=== PATIENT | male | born 1950 | race Caucasian/White ===

== ENCOUNTER → 2017-08-14 10:35 | Outpatient (CLI) | payer MEDICARE, OTHER, SELFPAY ==
[2017-08-14 12:36] LABS: Vitamin B12 473 pg/mL (211-911)
[2017-08-14 13:18] LABS: Cholesterol 183 mg/dL (200); Creatinine, Serum 0.96 mg/dL (0.70-1.30); EST Glomerular Filtration Rate 83 mL/min (>60); Est Glom Filt Rate - Afr Amer 101 mL/min (>60); Ferritin 99 ng/mL (26-388); High Density Lipoprotein 54 mg/dL; Thyroid Stim Hormone (TSH) 1.08 uIU/mL (0.358-3.74); Triglycerides 79 mg/dL; Very Low Density Lipoprotein 16 mg/dL (5-40)
== END ==
PROVIDERS: Family Provider Family Medicine; PCP Family Medicine; Visit Provider Family Medicine
DX: Z00.00 Encounter for general adult medical examination without abnormal findings (principal); R20.2 Paresthesia of skin
CPT/HCPCS: 36415; 80061; 82565; 82607; 82728; 82746; 84443

== ENCOUNTER 2017-10-13 10:49 | Emergency (ER) | payer MEDICARE, OTHER, SELFPAY ==
[2017-10-13 10:50] VITALS: BP 123/76; PULSE 67; RESP 16; TEMP 36.7; O2SAT 98; BMI 25.0
[2017-10-13 11:54] LABS: Absolute Lymphocyte Count 1.74 X10^3/ul (0.83-4.51); Absolute Neutrophil Count 3.9 X10^3/uL (2.0-7.7); Basophil# 0.02 X10^3/uL; Basophil% 0.3 % (0-1); Eosinophil# 0.11 X10^3/uL; Eosinophils% 1.8 % (0-5); Hematocrit 45.1 % (40-54); Hemoglobin 14.5 g/dl (13.0-16.5); Lymphocyte # 1.74 X10^3/ul (4.0); Lymphocyte % 28.4 % (19-41); Mean Corp Hgb Conc 32.2 g/gl (32-36); Mean Corpuscular Hgb 29.1 pg (27.0-32.0); Mean Corpuscular Volume 90.4 fL (80-94); Mean Platelet Vol. 9.2 fl (6.2-12.0); Monocyte# 0.37 X10^3/uL; Neutrophil # 3.87 X10^3/uL (2.7-7.7); Neutrophil % 63.3 % (47-70); Platelet Count 252 K/mm3 (150-450); RBC Distribution Width CV 13.3 % (11.6-14.6); RBC Distribution Width SD 43.3 fl (35.1-43.9); Red Blood Count 4.99 M/mm3 (4.6-6.2); White Blood Count 6.1 K/mm3 (4.4-11.0)
[2017-10-13 11:55] LABS: POSITIVE COUNT NO; POSITIVE DIFFERENTIAL NO; POSITIVE MORPHOLOGY NO
[2017-10-13 12:04] LABS: Anion Gap 8 (5-15); BUN 13 mg/dL (7-18); BUN/Creat Ratio 13.3 RATIO (10-20); Calcium,Total 8.8 mg/dL (8.5-10.1); Chloride 106 mmol/L (98-107); Creatinine, Serum 0.98 mg/dL (0.70-1.30); EST Glomerular Filtration Rate 81 mL/min (>60); Est Glom Filt Rate - Afr Amer 98 mL/min (>60); Estimated Creatinine Clearance 74.15 ml/min; Glucose 96 mg/dL (74-106); Potassium 4.3 mmol/L (3.5-5.1); Sodium Level 143 mmol/L (136-145)
--- NOTE | 2017-10-13 12:24 | ED.VISSUMM ---
- ER Visit Summary Date of Service: 10/13/17 Chief Complaint: Twitching and paresthesias History of Present Illness: The patient is a [address] Melquiades Burgess. He reports that he has had leg spasms and twitching for approximately 1 year that come and go. States that these are present at night only. States that approximately 1 week ago these began in his trunk and then last night they were in his face. Reports this morning is got tingling in his hands bilaterally left greater than right. He denies any weakness. Review of systems: General: No fever, chills, cold sweats. Cardiovascular: No chest pain, palpitations. Respiratory: No cough, shortness of breath, dyspnea on exertion. Gastrointestinal: No abdominal pain, nausea, vomiting, diarrhea, melena, or hematochezia. Genitourinary: No dysuria, frequency, hematuria. Skin: No rash. Neuro: No headache, weakness. Physical Examination: Vitals: Stable. Afebrile. General: Well-nourished and well-developed. Head: Normocephalic atraumatic. Neck: Supple, no lymphadenopathy. No JVD. Nontender. Cardiovascular: Regular rate and rhythm. No murmurs. Respiratory: No respiratory distress. Clear to auscultation bilaterally. Abdominal: Soft, nontender, nondistended, normal bowel sounds. No guarding, rebound, or peritoneal signs. Back: Nontender. Extremities: Nontender, no edema. Skin: Normal color, no rash. Neurologic: Alert and oriented ?3. Cranial nerves II through XII are intact. Normal strength and sensation. NIH scale is 0. Psych: Normal affect. Test Results: CBC is normal. Chem-[address] head is normal. Emergency Department Course and Treatment: Patient was given a liter bolus of normal saline. He is resting comfortably. Treatment Plan: Patient was discussed with Dr. Melquiades Burgess. He will be discharged with instructions to follow-up within 3 days for results of the heavy metal testing and further evaluation. Return to the emergency department for any worsening symptoms. Disposition: To home in improved and stable condition. Impression: 1. Paresthesias, uncertain cause. 2. Intermittent twitching. This note was generated with [employer] software. It may contain incorrect words, spelling, and punctuation that were not noted in review of the chart prior to signing ED Disposition - Plan for ED Patient: Chief Complaint: Neuro S/Sx Instructions: ED Paraesthesias Prescriptions: Zolpidem Tartrate [Ambien] 10 mg PO QHS PRN #5 tab PRN Reason: Insomnia Referrals: Melquiades Burgess MD [Primary Care Provider] - 3-5 Days
[2017-10-13 13:08] VITALS: BP 130/81; PULSE 56; PULSE 57; RESP 16; O2SAT 98
[2017-10-15 10:45] LABS: Arsenic 7245 6 ug/L (2-23); Lead, Blood 1 ug/dL (0-4); Mercury, Blood 85324 1.2 ug/L (0.0-14.9)
== END 2017-10-13 13:33 | disposition home or self-care (01) ==
PROVIDERS: Emergency Provider Emergency Medicine; Family Provider Family Medicine; PCP Family Medicine
DX: R25.3 Fasciculation (principal); R20.2 Paresthesia of skin
CPT/HCPCS: 36415; 70450; 80048; 82175; 83655; 83825; 85025; 90471; 99285; J7030; J7040; A4216

== ENCOUNTER → 2017-10-16 13:25 | Outpatient (CLI) | payer MEDICARE, OTHER, SELFPAY ==
[2017-10-16 14:40] LABS: PTHIN 68.2 pg/mL (18.4-80.1)
[2017-10-20 10:27] LABS: ANTINUCLEAR ANTIBODIES DIRECT Negative (Negative)
[2017-10-20 12:08] LABS: Lyme IgG P18 Ab Absent (.); Lyme IgG P23 Ab Absent (.); Lyme IgG P28 Ab Absent (.); Lyme IgG P30 Ab Absent (.); Lyme IgG P39 Ab Absent (.); Lyme IgG P41 Ab Absent (.); Lyme IgG P45 Ab Absent (.); Lyme IgG P58 Ab Absent (.); Lyme IgG P66 Ab Absent (.); Lyme IgG P93 Ab Absent (.); Lyme IgM P23 Ab Absent (.); Lyme IgM P39 Ab Absent (.); Lyme IgM P41 Ab Absent (.)
[2017-10-20 17:14] LABS: Lyme IgG WB Interpretation Negative (.); Lyme IgM WB Interpretation Negative (.)
[2017-10-23 03:49] LABS: Rapid Plasmin Reagin (RPR) NONREACTIVE (NONREACTIVE)
== END ==
PROVIDERS: Family Provider Family Medicine; PCP Family Medicine; Visit Provider Family Medicine
DX: R20.2 Paresthesia of skin (principal)
CPT/HCPCS: 36415; 83970; 86038; 86592; 86617

== ENCOUNTER → 2017-11-12 16:00 | Outpatient (CLI) | payer MEDICARE, OTHER, SELFPAY ==
[2017-11-12 17:26] LABS: Erythrocyte Sedimentation Rate 2 mm/hr (0-20)
[2017-11-12 17:38] LABS: Ferritin 99 ng/mL (26-388); Iron 88 ug/dL (65-175); Iron Binding Capacity,Total 324 ug/dL (250-450); PERCENT IRON SATURATION 27.2 % (15.0-55.0)
[2017-11-12 17:48] LABS: Hemoglobin A1c 5.2 % (4.2-6.3)
[2017-11-12 18:27] LABS: HIV - WCH Non-Reactive (Nonreactive); Vitamin B12 364 pg/mL (211-911)
[2017-11-16 18:43] LABS: RNP Ab <0.2 AI (0.0-0.9); Smith Ab <0.2 AI (0.0-0.9)
[2017-11-16 20:07] LABS: Immunoglobulin A 196 mg/dL (61-437); Immunoglobulin G 884 mg/dL (700-1600)
[2017-11-17 09:28] LABS: ANTINUCLEAR ANTIBODIES DIRECT Negative (Negative); Immunoglobulin M 75 mg/dL (20-172)
== END ==
PROVIDERS: Family Provider Family Medicine; PCP Family Medicine; Visit Provider Psychiatry & Neurology Neurology
DX: D64.9 Anemia, unspecified (principal); G25.81 Restless legs syndrome; G62.9 Polyneuropathy, unspecified; R53.83 Other fatigue
CPT/HCPCS: 36415; 82607; 82728; 82784; 83036; 83540; 83550; 85652; 86038; 86235; 86334; 86703

== ENCOUNTER → 2019-10-06 14:14 | Outpatient (CLI) | payer MEDICARE, OTHER, SELFPAY ==
[2019-10-06 17:59] LABS: Absolute Lymphocyte Count 2.21 X10^3/uL (0.83-4.51); Absolute Neutrophil Count 2.3 X10^3/uL (2.0-7.7); Basophil# 0.04 X10^3/uL; Basophil% 0.7 % (0-1); Eosinophils% 5.6 % (0-5); Hematocrit 42.5 % (40-54); Hemoglobin 13.8 g/dL (13.0-16.5); Lymphocyte # 2.21 X10^3/ul (4.0); Lymphocyte % 41.3 % (19-41); Mean Corp Hgb Conc 32.5 g/dL (32-36); Mean Corpuscular Hgb 29.6 pg (27.0-32.0); Mean Platelet Vol. 10.1 fl (6.2-12.0); Monocyte# 0.47 X10^3/uL; Monocyte% 8.8 % (0-10); NRBC Flagged by Analyzer 0 % (0-5); Platelet Count 270 K/mm3 (150-450); RBC Distribution Width CV 13.1 % (11.6-14.6); RBC Distribution Width SD 43.7 fl (35.1-43.9); Red Blood Count 4.67 M/mm3 (4.6-6.2); White Blood Count 5.4 K/mm3 (4.4-11.0)
[2019-10-06 18:19] LABS: Erythrocyte Sedimentation Rate < 1 mm/hr (0-20)
[2019-10-06 18:24] LABS: ALB/GLOB Ratio 1.2 RATIO (0.9-2.4); AST(SGOT) 19 U/L (15-37); Alanine Aminotransfer ALT/SGPT 28 U/L (16-61); Albumin, Serum 3.7 g/dL (3.2-5.0); Alkaline Phosphatase 73 U/L (45-117); Anion Gap 7 (5-15); BUN 14 mg/dL (7-18); BUN/Creat Ratio 13.9 RATIO (10-20); Calcium,Total 8.4 mg/dL (8.5-10.1); Chloride 104 mmol/L (98-107); Creatinine, Serum 1.01 mg/dL (0.70-1.30); EST Glomerular Filtration Rate 78 mL/min (>60); Est Glom Filt Rate - Afr Amer 94 mL/min (>60); Globulin 3.2 g/dL (2.2-4.2); Glucose 74 mg/dL (74-106); Potassium 3.6 mmol/L (3.5-5.1); Protein, Total 6.9 g/dL (6.4-8.2); Sodium Level 141 mmol/L (136-145)
== END ==
PROVIDERS: PCP Family Medicine; Referring Provider Family Medicine; Visit Provider Family Medicine
DX: R10.12 Left upper quadrant pain (principal)
CPT/HCPCS: 36415; 80053; 85025; 85652

== ENCOUNTER → 2019-10-17 08:33 | Outpatient (CLI) | payer MEDICARE, OTHER, SELFPAY ==
--- NOTE | 2019-10-17 08:36 | CT_ITS ---
STUDY: CT ABDOMEN WITH CONTRAST REASON FOR EXAM: Male, 68 years old. LUQ PAIN RADIATION DOSAGE (If Supplied By Facility): CTDIvol = ( 15.41 ) mGy, DLP = ( 442.72 ) mGycm TECHNIQUE: Transaxial images were obtained post I.V. administration of Oral and IV Readi-CAT and 100mL Isovue-300, and with oral contrast. Sagittal and coronal images were reconstructed. Individualized dose optimization techniques were used for this CT. COMPARISON: Comparison is made with prior study dated 07/07/2012. FINDINGS: Stable mild increased markings at the lung bases suggestive of prior scarring. The visualized portions of the heart are within normal limits. There is decreased attenuation of the liver consistent with steatosis. Normal gallbladder and extrahepatic biliary system. Stable 1.2 cm cyst in the anterior aspect of the spleen. Normal pancreas. Normal bilateral adrenal glands. Normal right kidney. Normal left kidney. Normal visualized stomach. Normal small intestine. Normal colon. The appendix is visualized and appears normal. There is scattered atherosclerotic calcification of the abdominal aorta, without a demonstrated aneurysm. Normal inferior vena cava. Normal retroperitoneum. There is a small umbilical hernia containing fat. Normal osseous structures. CT/Abdomen WITH IV Contrast IMPRESSION: No acute abnormality is seen. Electronically Signed: Rodrigue Thornton, at 15:05 EDT , Service support ,
== END ==
PROVIDERS: PCP Family Medicine; Referring Provider Family Medicine; Visit Provider Family Medicine
DX: R10.12 Left upper quadrant pain (principal)
CPT/HCPCS: 74160; Q9967

== ENCOUNTER → 2019-12-23 09:11 | Outpatient (CLI) | payer MEDICARE, OTHER, SELFPAY ==
[2019-12-23 09:42] LABS: Absolute Lymphocyte Count 2.12 X10^3/uL (0.83-4.51); Absolute Neutrophil Count 2.4 X10^3/uL (2.0-7.7); Basophil# 0.04 X10^3/uL; Basophil% 0.8 % (0-1); Eosinophil# 0.29 X10^3/uL; Eosinophils% 5.5 % (0-5); Hematocrit 45.1 % (40-54); Hemoglobin 14.6 g/dL (13.0-16.5); Lymphocyte # 2.12 X10^3/ul (4.0); Lymphocyte % 39.9 % (19-41); Mean Corp Hgb Conc 32.4 g/dL (32-36); Mean Corpuscular Hgb 29.3 pg (27.0-32.0); Mean Corpuscular Volume 90.6 fL (80-94); Mean Platelet Vol. 9.3 fl (6.2-12.0); Monocyte# 0.47 X10^3/uL; Monocyte% 8.9 % (0-10); NRBC Flagged by Analyzer 0 % (0-5); Neutrophil # 2.36 X10^3/uL (2.7-7.7); Neutrophil % 44.3 % (47-70); Platelet Count 257 K/mm3 (150-450); RBC Distribution Width CV 13.1 % (11.6-14.6); RBC Distribution Width SD 43.1 fl (35.1-43.9); Red Blood Count 4.98 M/mm3 (4.6-6.2); White Blood Count 5.3 K/mm3 (4.4-11.0)
[2019-12-23 10:12] LABS: ALB/GLOB Ratio 1.1 RATIO (0.9-2.4); AST(SGOT) 16 U/L (15-37); Alanine Aminotransfer ALT/SGPT 25 U/L (16-61); Albumin, Serum 3.8 g/dL (3.2-5.0); Alkaline Phosphatase 69 U/L (45-117); Anion Gap 6 (5-15); BUN 18 mg/dL (7-18); BUN/Creat Ratio 16.5 RATIO (10-20); Calcium,Total 8.6 mg/dL (8.5-10.1); Chloride 104 mmol/L (98-107); Cholesterol 212 mg/dL (200); Creatinine, Serum 1.09 mg/dL (0.70-1.30); EST Glomerular Filtration Rate 71 mL/min (>60); Est Glom Filt Rate - Afr Amer 86 mL/min (>60); Globulin 3.4 g/dL (2.2-4.2); Glucose 89 mg/dL (74-106); High Density Lipoprotein 52 mg/dL; PSA,Total - Annual Screen 3.68 ng/mL (0.00-4.00); Potassium 4.2 mmol/L (3.5-5.1); Protein, Total 7.2 g/dL (6.4-8.2); Sodium Level 139 mmol/L (136-145); Triglycerides 111 mg/dL; Very Low Density Lipoprotein 22 mg/dL (5-40)
== END ==
PROVIDERS: PCP Family Medicine; Referring Provider Family Medicine; Visit Provider Family Medicine
DX: G25.81 Restless legs syndrome (principal); Z13.220 Encounter for screening for lipoid disorders; Z12.5 Encounter for screening for malignant neoplasm of prostate; Z79.899 Other long term (current) drug therapy
CPT/HCPCS: 36415; 80053; 80061; 84153; 85025; G0103

== ENCOUNTER → 2020-05-25 12:30 | Outpatient (CLI) | payer MEDICARE, OTHER, SELFPAY ==
[2020-05-28 13:21] LABS: PSA, Free % 11.4 % (.); PSA, Total Ultrasensitive 3.5 ng/mL (0.0-4.0)
== END ==
PROVIDERS: PCP Family Medicine; Referring Provider Family Medicine; Visit Provider Family Medicine
DX: R97.20 Elevated prostate specific antigen [PSA] (principal)
CPT/HCPCS: 36415; 84153; 84154

== ENCOUNTER 2021-05-03 13:08 | Outpatient (CLI) | payer MEDICARE, OTHER, SELFPAY ==
[2021-05-03 13:16] LABS: Bacteria 0 SEEN /hpf (None Seen); Mucous, Urine 0 SEEN /hpf (<or=2+); Red Blood Cells-Urine 0 SEEN /hpf (0-5); Squamous Epithelial Cells - UA 0 SEEN /hpf (0-5)
[2021-05-03 15:36] LABS: Color, Urine Yellow (Yellow); Glucose, Dipstick Normal (Normal); Ketone-Dipstick Negative (Negative); Leukocyte Esterase-Dipstick Negative /ul (Negative); Nitrite-Dipstick Negative (Negative); Occult Blood-Urine Negative /ul (Negative); Protein-Dipstick Negative (Negative); Urine Bilirubin Dipstick Negative (Negative); Urine Clarity Clear (Clear); Urine Urobilinogen Normal (Normal)
[2021-05-03 15:42] LABS: Hematocrit 42.4 % (40-54); Hemoglobin 13.9 g/dL (13.0-16.5); Mean Corp Hgb Conc 32.8 g/dL (32-36); Mean Corpuscular Hgb 29.7 pg (27.0-32.0); Mean Corpuscular Volume 90.6 fL (80-94); Platelet Count 407 K/mm3 (150-450); RBC Distribution Width CV 12.8 % (11.6-14.6); RBC Distribution Width SD 41.9 fl (35.1-43.9); Red Blood Count 4.68 M/mm3 (4.6-6.2)
[2021-05-03 15:44] LABS: ALB/GLOB Ratio 0.9 RATIO (0.9-2.4); AST(SGOT) 14 U/L (15-37); Alanine Aminotransfer ALT/SGPT 20 U/L (16-61); Albumin, Serum 3.5 g/dL (3.2-5.0); Alkaline Phosphatase 97 U/L (45-117); Anion Gap 4 (5-15); BUN 17 mg/dL (7-18); CRP 7.42 mg/L (0.0-3.0); Calcium,Total 9.3 mg/dL (8.5-10.1); Chloride 105 mmol/L (98-107); Creatinine, Serum 1.13 mg/dL (0.70-1.30); EST Glomerular Filtration Rate 68 mL/min (>60); Est Glom Filt Rate - Afr Amer 82 mL/min (>60); Globulin 3.7 g/dL (2.2-4.2); Glucose 118 mg/dL (74-106); Potassium 3.8 mmol/L (3.5-5.1); Protein, Total 7.2 g/dL (6.4-8.2); Sodium Level 138 mmol/L (136-145)
[2021-05-03 16:07] LABS: White Blood Cells 0-5 SEEN /hpf (0-5)
== END 2021-05-03 23:59 | disposition home or self-care (01) ==
LOC: MTLAB 13:12
PROVIDERS: PCP Family Medicine; Referring Provider Family Medicine; Visit Provider Family Medicine
DX: R10.9 Unspecified abdominal pain (principal)
CPT/HCPCS: 36415; 80053; 81001; 85027; 86140

== ENCOUNTER 2021-05-07 13:15 | Outpatient (CLI) | payer MEDICARE, OTHER, SELFPAY ==
--- NOTE | 2021-05-07 13:19 | CT_ITS ---
STUDY: CT Abdomen And Pelvis W/O Contrast Injection 05/07/2021 5:38 PM REASON FOR EXAM: Male, 70 years old. Abdominal pain R flank pain, concern for stone/hydronephrosis; cc copy of all la Individualized dose optimization techniques were used for this CT. COMPARISON: Oct 17 2019 8:58am TECHNIQUE: CT Abdomen And Pelvis W/O Contrast Injection FINDINGS: There are atherosclerotic calcifications of visualized coronary arteries. 15 x 26 mm right posterior lower lobe subpleural density. This may be a pneumonia. Underlying mass is difficult to exclude. This finding is new since the prior study. Normal liver. Normal gallbladder and extrahepatic biliary system. Normal spleen. Normal pancreas. Normal bilateral adrenal glands. No acute findings of the right kidney. No acute findings of the left kidney. Normal visualized stomach. Normal small intestine. Stool throughout the colon. There is non-visualization of the appendix. There are calcifications of the abdominal aorta. This is consistent for atherosclerotic disease. There is no abdominal aortic aneurysm. Normal inferior vena cava. Subcentimeter mesenteric lymph nodes. Normal urinary bladder. There is an umbilical hernia containing fat. There are diffuse degenerative changes of the visualized lumbar spine. IMPRESSION: (NOT LISTED IN ORDER OF SIGNIFICANCE) 15 x 26 mm right posterior lower lobe subpleural density. This may be a pneumonia. Underlying mass is difficult to exclude. This finding is new since the prior study. There are no renal stones. There is no hydronephrosis. Other findings as above. Electronically Signed: Demetri Perdomo MD at 17:41 EDT , CT/Abdomen/Pelvis without Cont
== END 2021-05-07 23:59 | disposition home or self-care (01) ==
LOC: CT 13:17
PROVIDERS: PCP Family Medicine; Referring Provider Family Medicine; Visit Provider Family Medicine
DX: R10.9 Unspecified abdominal pain (principal)
CPT/HCPCS: 74176

== ENCOUNTER 2021-05-16 14:47 | Outpatient (CLI) | payer MEDICARE, OTHER, SELFPAY ==
--- NOTE | 2021-05-16 15:18 | CT_ITS ---
STUDY: CT CHEST WITHOUT CONTRAST ENHANCEMENT OF 1524 HOURS ON 05/16/2021 REASON FOR EXAM: 70-year-old male with an abnormal study on 05/07/2021 that suggested a right lower lobe subpleural density. RADIATION DOSAGE (If Supplied By Facility): CTDIvol = ( 8.37 ) mGy, DLP = ( 280.59 ) mGycm TECHNIQUE: Transaxial imaging was performed without the administration of intravenous contrast material. Individualized dose optimization techniques were used for this CT. COMPARISON: 05/07/2021 study, which suggested a 15 mm x 26 mm right posterior lower lobe subpleural density. This study is an follow-up. FINDINGS: There is a 2.74 cm in diameter low-attenuation, mildly irregularly bordered soft tissue lesion that arises from the posterior pleura of the right costophrenic angle. There is a 7 mm ovoid cystic lesion or necrosis in this pleural solid mass lesion; this finding was not present on the previous study of 05/07/2021.. There is a small linear connection to the opposite pleura in the right costophrenic angle. In addition, there is a 7 mm area of pleural thickening laterally in the anterior pleura of the right costophrenic angle. This lesion has not significantly changed in size, that has slightly changed in configuration (flutter) since the previous study of 05/07/2021. Flattening may be secondary to a difference in inspiration. Since pleural lesions are often metastatic lesions or primary neoplasms, it is important that this pleural density be biopsied. It is readily accessible for percutaneous biopsy using a posterior approach under computed tomography. There is no evidence of acute pleural or pulmonary mass lesions. There is no evidence of mediastinal or hilar lymphadenopathy. . No evidence of pulmonary infiltrates, atelectasis, effusion, or pulmonary mass lesions. There is no evidence of cardiomegaly or heart failure. Normal osseous structures without metastatic lesions. CT/Chest without Contrast IMPRESSION: 1. Presence of a 2.74 cm in diameter low-attenuation solid mass lesion with a mildly irregular border arising from the posterior pleura of the right costophrenic angle. There has been interval change in this lesion since previous study of 05/07/2021 with a slight flattening of the lesion, a more irregular border, and a 7 mm diameter cyst or solid necrosis lateral in the lesion. 2. There is a linear connection of this lesion into the adjacent anterior pleura of the right costophrenic angle. In addition, there is a 7 mm thickening of the anterior pleura laterally. 3. Since pleural lesions are often either metastatic or primary neoplasms, a percutaneous biopsy using a posterior approach under computed tomography is recommended for further evaluation. 4. No evidence of other pleural abnormalities in the chest. 5. No pulmonary infiltrates, atelectasis, effusion, or pulmonary mass lesions, or pulmonary metastatic disease. 6. No mediastinal or hilar lymphadenopathy. 7. No cardiomegaly. 8. Normal osseous structures without metastatic lesions.. Electronically Signed: Milad Haddad MD at 0:16 EDT ,
== END 2021-05-16 23:59 | disposition home or self-care (01) ==
LOC: CT 14:48
PROVIDERS: PCP Family Medicine; Referring Provider Family Medicine; Visit Provider Family Medicine
DX: J18.9 Pneumonia, unspecified organism (principal)
CPT/HCPCS: 71250

== ENCOUNTER 2021-05-20 14:12 | Outpatient (CLI) | payer MEDICARE, OTHER, SELFPAY ==
--- NOTE | 2021-05-20 14:30 | CT_ITS ---
STUDY: CT CHEST WITH CONTRAST REASON FOR EXAM: Male, 70 years old. PULMONARY INFARCT RADIATION DOSAGE (If Supplied By Facility): CTDIvol = ( 12.08 ) mGy, DLP = ( 505.47 ) mGycm TECHNIQUE: Transaxial imaging was performed following intravenous administration of IV 100mL Isovue-300. Multiplanar coronal and sagittal images were reformatted. Individualized dose optimization techniques were used for this CT. COMPARISON: Comparison is made with prior study dated 05/16/2021. FINDINGS: Persistent ovoid soft tissue pleural-based nodule in the posterior medial segment of the right lower lobe. It presently measures 2.6 x 5.9 cm on prior study dated 05/16/2021, it measured 2.7 cm x 1.2 cm. This is essentially unchanged. Stable linear increased markings in the posterior medial segment of the right lower lobe suggestive of scarring. Tiny calcified granuloma in the posterior aspect of the right upper lobe. There is no demonstrated pleural abnormality. Normal heart and pericardium. Normal mediastinum. Normal hilar regions. Normal enhanced pulmonary arteries. Normal aorta arch and descending thoracic aorta. There are multi-level degenerative changes of the thoracic spine. There is no demonstrated abnormality of the visualized upper abdomen. CT/Chest WITH Contrast IMPRESSION: Essentially stable ovoid soft tissue nodular density in the posterior segment of the right lower lobe. Electronically Signed: Rodrigue Thornton MD at 14:53 EDT ,
== END 2021-05-20 23:59 | disposition home or self-care (01) ==
PROVIDERS: PCP Family Medicine; Referring Provider Family Medicine; Visit Provider Family Medicine
DX: I26.99 Other pulmonary embolism without acute cor pulmonale (principal)
CPT/HCPCS: 71260; Q9967

== ENCOUNTER 2021-05-21 11:09 | Outpatient (CLI) | payer MEDICARE, OTHER, SELFPAY ==
[2021-05-21 11:30] LABS: Hematocrit 44.1 % (40-54); Hemoglobin 14.6 g/dL (13.0-16.5); Mean Corp Hgb Conc 33.1 g/dL (32-36); Mean Corpuscular Hgb 29.9 pg (27.0-32.0); Mean Corpuscular Volume 90.4 fL (80-94); Mean Platelet Vol. 8.8 fl (6.2-12.0); Platelet Count 240 K/mm3 (150-450); RBC Distribution Width CV 12.9 % (11.6-14.6); RBC Distribution Width SD 42.1 fl (35.1-43.9); Red Blood Count 4.88 M/mm3 (4.6-6.2); White Blood Count 4.9 K/mm3 (4.4-11.0)
[2021-05-21 11:43] LABS: Prothrombin Time (Protime)PT. 12.5 SECONDS (11.7-14.9)
[2021-05-21 11:44] LABS: Partial Thromboplast Time 32.1 Seconds (24.1-36.2)
== END 2021-05-21 23:59 | disposition home or self-care (01) ==
LOC: PAVLAB 11:11
PROVIDERS: PCP Family Medicine; Referring Provider Internal Medicine Critical Care Medicine; Visit Provider Internal Medicine Critical Care Medicine
DX: Z01.812 Encounter for preprocedural laboratory examination (principal); R06.02 Shortness of breath
CPT/HCPCS: 36415; 85027; 85610; 85730

== ENCOUNTER 2021-05-27 08:21 | Outpatient (CLI) | payer MEDICARE, OTHER, SELFPAY ==
[2021-05-27] VITALS (10 sets, daily range): BP systolic 90–119; BP diastolic 62–77; PULSE 17–61; RESP 12–96; TEMP 36.4; O2SAT 93–100; BMI 26.6
--- NOTE | 2021-05-27 | IMM_PTH ---
PATIENT: CORINNE SIMPSON LOC: CT U#:[id number] AGE/SX: 70/M ROOM: RE05/27/[address]: Dr. Willam Rice MD : 1950 BED: DIS: 05/27/2021 SPEC #: [id number] RECD: 05/28/21 12:36 STATUS: CHITO REKashif #: [id number] KEN: 05/27/21 00:[address]: Willam Rice DEPT: IMMUNOHISTOCHEMISTRY RECD BY: Maria Esther Thomas ENTERED: 05/28/21 12:38 SP TYPE: IMMUNO OTHR DR: Dr. Melquiades Burgess MD Tissues: Right lower lobe of lung, NOS Procedures: NAPSIN A (add) Frederick Ret (add) CD34 (add) CK7 (add) CK8 (add) TTF1 (add) Vimentin (add) Pankeratin (initial) PHYSICIAN & INSTITUTION [place] [id number] SPECIMEN INFORMATION: Tissue Source: Posterior right lower lung Clinical Info: Posterior right lower lung mass Specimen Number: [id number] CPT code: 73906, 32968 x7 METHODOLOGY: Deparaffinized sections of prefer/formalin-fixed tissue or PAP/DQ stained slides are incubated with monoclonal/polyclonal antibodies/oligonucleotide probes. Localization is made via biotin free immunoperoxidase method. Appropriate controls are performed and reacted as expected. Results on target cell population are indicated in the following table: RESULTS: ANTIBODY / CLONE RESULT AE1-3 (AE1/AE3/PCK26) negative CK7 (OV-TL12/30) negative CK8 (69ofseW55) negative Vimentin (V9) positive CD34 (QBEnd-10) negative TTF-1 (8G7G3/1) negative Napsin A (Rabbit Polyclonal) negative CALRET (polyclonal) negative These tests were developed and their performance characteristics determined by [facility]. They may not have been cleared or approved by the U.S. Food and Drug Administration. The FDA has determined that such clearance or approval is not necessary. The above immunohistochemical/dualISH markers are ordered and reviewed by the Pathologist. INTERPRETATION: Posterior right lower lung mass, CT-guided biopsy: Lung parenchymal tissue with extensive fibrosis. Negative for malignancy. SJ:garrett 05/29/2021 Case has been reviewed in consultation with Dr. Torres who concurs with the above diagnosis. IDC:[email or web address]
--- NOTE | 2021-05-27 08:23 | CT_ITS ---
PROCEDURE: CT GUIDED CORE NEEDLE BIOPSY OF A right lower lobe LUNG LESION INDICATION: Male, 70 years old. Right lung mass PHYSICIAN: Dr. PEDICELLI. Han CONSENT: Written informed consent was obtained having explained the risks, benefits and alternatives in detail with the patient who accepted the risks and agreed to proceed. Laboratory review and clinical assessment was performed. CONSCIOUS SEDATION PROTOCOL: The Drugs used were: 2 mg Versed, IV., and 50 mcg Fentanyl, IV. The sedation time was: 24 minutes. Conscious sedation was started 9:20 AM and terminated at 9:44 AM. The conscious sedation protocol was independently monitored. RADIATION DOSAGE (If Supplied By Facility): CTDIvol = ( 17 ) mGy, DLP = ( 510.38 ) mGycm Individualized dose optimization techniques were used for this CT. TECHNIQUE: The patient was placed in the prone position. A noncontrast CT was performed to localize the lesion in the pleural-based right lower lobe lung nodule . The skin surface was prepped and draped in a sterile fashion. 1% lidocaine was used for local anesthesia. Using CT guidance, a 20-gauge coaxial biopsy device was advanced to the periphery of the lesion. A total of 4 core specimens were obtained. The specimens were placed in a formalin solution. A post procedure CT demonstrated no adverse sequelae or pneumothorax. The patient tolerated the procedure well without adverse event. A negative biopsy does not exclude malignancy. Further imaging or clinical followup based on patient condition and degree of clinical suspicion for malignancy. Suggest rebiopsy, if biopsy results do not match with clinical scenario. CT/Biopsy/Inj or Needle Placement IMPRESSION: 1. CT directed core needle biopsy of the right lower lobe pulmonary nodule using CT image guidance with image documentation as described. Pathology results are pending. 2. Conscious Sedation protocol utilized with independent monitoring. Electronically Signed: Rodrigue Thornton MD at 10:26 EDT ,
[2021-05-27] MEDS: Midazolam 2 MG/2 ML Syringe IV (09:20)
[2021-05-27] MEDS: fentaNYL 100 MCG/2 ML Ampul IV (09:21)
[2021-05-27] MEDS: Lidocaine 2% (20 ml mdv) 20 ML Vial INFILT (09:35)
--- NOTE | 2021-05-27 09:40 | ASPIGT_PTH ---
PATIENT: CORINNE SIMPSON LOC: CT U#:[id number] AGE/SX: 70/M ROOM: RE05/27/[address]: Dr. Willam Rice MD : 1950 BED: DIS: 05/27/2021 SPEC #: [id number] RECD: 05/27/21 10:00 STATUS: CHITO ELVIRA #: [id number] KEN: 05/27/21 09:[address]: Willam Rice DEPT: SURGICAL PATHOLOGY RECD BY: Shaylee Judge ENTERED: 05/27/21 12:30 SP TYPE: ASP RAD OTHR DR: Dr. Melquiades Burgess MD Tissues: Lung, NOS Procedures: FNA Specimen Adequacy Trichrome (control) Special Stain Group II Surgery Specimen Level IV Imprint (control) HEADER OPERATION: CT-guided right lower lobe lung biopsy PRE-OP DIAGNOSIS: Right lung mass TISSUE SUBMITTED: Posterior right lower lung 20-gauge core x4 MICROSCOPIC DIAGNOSIS Posterior right lower lobe lung, CT-guided core biopsy: Lung parenchymal tissue with extensive fibrosis. Negative for malignancy. See comment. SJ:garrett 05/29/2021 COMMENT The specimen is evaluated at the time of biopsy by Dr. Lyons. Immediate Evaluation = Negative for malignant cells. Immunohistochemistry ([id number]) supports the above diagnosis. Trichrome stain with matched control is used in the evaluation of the specimen. Case has been reviewed in consultation with Dr. Torres who concurs with the above diagnosis. IDC:AM MICROSCOPIC DESCRIPTION Slides are reviewed. GROSS DESCRIPTION Received in fixative is one container labeled with the patient's name and designated right lung. The specimen consists of multiple irregular fragments of light conde soft tissue that in aggregate measure 0.8 x <0.1 x <0.1 cm. The specimen is totally submitted in one cassette. / AM:garrett 05/27/2021 TC:5 CPT: 39225, 54417, 17056
--- NOTE | 2021-05-27 09:46 | RAD_ITS ---
STUDY: X-RAY CHEST REASON FOR EXAM: Male, 70 years old. POST BX TECHNIQUE: AP inspiration and expiration views. COMPARISON: Comparison is made with prior study of 11/05/2011. FINDINGS: No evidence of pneumothorax on the immediate post right lung biopsy radiographs. RAD/Chest Insp/Exp 2 View IMPRESSION: No evidence of pneumothorax on the immediate post right lung biopsy radiographs. Electronically Signed: Rodrigue Thornton MD at 11:13 EDT ,
== END 2021-05-27 23:59 | disposition home or self-care (01) ==
LOC: CT 08:22
PROVIDERS: PCP Family Medicine; Referring Provider Internal Medicine Critical Care Medicine; Visit Provider Internal Medicine Critical Care Medicine
DX: R91.8 Other nonspecific abnormal finding of lung field (principal)
CPT/HCPCS: 32408; 71046; 77012; 88172; 88305; 88313; 88341; 88342; 99156; J7040; A4216; C2613

== ENCOUNTER 2021-05-30 12:38 | Outpatient (CLI) | payer MEDICARE, OTHER, SELFPAY ==
--- NOTE | 2021-05-31 10:29 | PFT ---
INTRODUCTION: The patient is a 70-year-old male that presents for pulmonary function studies secondary to a diagnosis of lung mass. Respiratory therapy reported good patient effort. Bronchodilators were used during testing. INTERPRETATION: Forced expiration spirometry demonstrates no evidence of a large airways obstructive ventilatory defect. There was no significant response to aerosolized bronchodilators. Spirograms are of good quality and plateau normally. Body plethysmography was performed and reveals lung volumes to be within normal limits. Diffusing capacity by single breath CO is likewise within normal limits. IMPRESSION: Grossly normal pulmonary function studies.
== END 2021-05-30 23:59 | disposition home or self-care (01) ==
LOC: PSN 12:39
PROVIDERS: PCP Family Medicine; Referring Provider Internal Medicine Critical Care Medicine; Visit Provider Internal Medicine Critical Care Medicine
DX: R91.8 Other nonspecific abnormal finding of lung field (principal)
CPT/HCPCS: 94060; 94726; 94729

== ENCOUNTER → 2021-10-18 | Outpatient (CLI) | payer MEDICARE, OTHER, SELFPAY ==
--- NOTE | 2021-10-18 10:56 | RAD_ITS ---
INDICATION: pain EXAMINATION/TECHNIQUE: X-RAY - LEFT XR Shoulder Min 2 Views: AP neutral, internal rotation, external rotation and scapular Y views COMPARISON: None. FINDINGS: SOFT TISSUES: No significant soft tissue swelling. No radiopaque foreign body detected. BONES/JOINTS: No acute fracture or subluxation. Normal alignment. Preservation of the joint space(s). No suspicious osseous lesion observed. RAD/Shoulder min 2 Views IMPRESSION: Negative left shoulder. Electronically Signed: Liugi Anguiano MD at 0:46 EDT ,
== END | disposition home or self-care (01) ==
PROVIDERS: PCP Family Medicine; Referring Provider Nurse Practitioner Family; Visit Provider Nurse Practitioner Family
DX: M25.512 Pain in left shoulder (principal)
CPT/HCPCS: 73030

== ENCOUNTER → 2023-03-11 | Outpatient (CLI) | payer MEDICARE, OTHER, SELFPAY ==
[2023-03-11 10:25] LABS: Absolute Lymphocyte Count 2.07 X10^3/uL (0.83-4.51); Absolute Neutrophil Count 2.3 X10^3/uL (2.0-7.7); Basophil# 0.06 X10^3/uL; Basophil% 1.2 % (0-1); Eosinophils% 1.9 % (0-5); Hematocrit 41.7 % (40-54); Hemoglobin 13.2 g/dL (13.0-16.5); Lymphocyte # 2.07 X10^3/ul (0.83-4.51); Mean Corp Hgb Conc 31.7 g/dL (32-36); Mean Corpuscular Hgb 28.6 pg (27.0-32.0); Mean Corpuscular Volume 90.5 fL (80-94); Monocyte# 0.57 X10^3/uL; NRBC Flagged by Analyzer 0 % (0-5); Neutrophil # 2.31 X10^3/uL (2.7-7.7); Neutrophil % 44.7 % (47-70); Platelet Count 377 K/mm3 (150-450); RBC Distribution Width SD 42.5 fl (35.1-43.9); Red Blood Count 4.61 M/mm3 (4.6-6.2); White Blood Count 5.2 K/mm3 (4.4-11.0)
[2023-03-11 10:59] LABS: AST(SGOT) 15 U/L (15-37); Alanine Aminotransfer ALT/SGPT 27 U/L (16-61); Albumin, Serum 3.5 g/dL (3.2-5.0); Alkaline Phosphatase 84 U/L (45-117); Anion Gap 4 (5-15); BUN 14 mg/dL (7-18); Calcium,Total 9.3 mg/dL (8.5-10.1); Chloride 108 mmol/L (98-107); EST Glomerular Filtration Rate 78 mL/min (>60); Est Glom Filt Rate - Afr Amer 95 mL/min (>60); Globulin 3.5 g/dL (2.2-4.2); Glucose 95 mg/dL (74-106); Lipase 52 U/L (13-75); Potassium 4.3 mmol/L (3.5-5.1); Sodium Level 140 mmol/L (136-145)
== END | disposition home or self-care (01) ==
LOC: MTLAB 08:30
PROVIDERS: PCP Family Medicine; Referring Provider Family Medicine; Visit Provider Family Medicine
DX: R10.13 Epigastric pain (principal)
CPT/HCPCS: 36415; 80053; 83690; 85025

== ENCOUNTER → 2023-03-12 | Outpatient (CLI) | payer MEDICARE, OTHER, SELFPAY ==
--- OUTSIDE RECORDS SUMMARY | 2023-03-12 12:12 | XMS RPT_ITS | CCD ---
Author Name Unknown Address [address] [place] [address] Organization [facility] Care Team Providers Care Hot Mill Operator Name Role Phone EDGARD TUTTLE Attending Unavailable EDGARD TUTTLE Consulting Unavailable EDGARD TUTTLE Primary Care Unavailable EDGARD TUTTLE Admitting Unavailable PROVIDER, UNKNOWN Consulting Unavailable Allergies Allergy Classification Reported Allergen(s) Allergy Type Date of Onset Reaction(s) Facility (1 source) Penicillins Drug allergy (disorder) [facility] Repository Results Test Name Value Interpretation Reference Range Facil ity Encounters Encounter Date Encounter Type Care Provider Facility Start: 11-03-2022 End: 11-03-2022 ambulatory EDGARD Bennett [facility] Procedures Date Procedure Procedure Detail Performing Clinician Start: 11-03-2022 PSA screening EDGARD KIANNA H Payers Date Payer Category Payer Unknown [id number] Medicare [id number] Unknown [id number] Summary Purpose Family History No Family History Records Found Advance Directives No Advanced Directives Records Found Additional Source Comments (unrecognized sect ion and content) No Status Records Found INFORMATION SOURCE (unrecogn ized section and content) FOR RECORDS PERTAINING TO PATIENTS WHO ARE OR HAVE BEEN ENROLLED IN A CHEMICAL DEPENDENCY/SUBSTANCEABUSE PROGRAM, SOME INFORMATION MAY BE OMITTED. This clinical summary was aggregated from multiple sources. Caution should be exercised in using it in the provision of clinical care. This summary normalizes information from multiple sources, and as a consequence, information in this document may materially change the coding, format and clinical context of patient data. In addition, data may be omitted in some cases. CLINICAL DECISIONS SHOULD BE BASED ON THE PRIMARY CLINICAL RECORDS. [facility] [employer] provides no warranty or guarantee of the accuracy or completeness of information in this document.
[2023-03-14 18:07] LABS: H. PYLORI STOOL AG Negative (Negative)
== END | disposition home or self-care (01) ==
LOC: MTLAB 11:51
PROVIDERS: PCP Family Medicine; Referring Provider Family Medicine; Visit Provider Family Medicine
DX: R10.13 Epigastric pain (principal)
CPT/HCPCS: 87338

== ENCOUNTER → 2023-05-07 | Outpatient (CLI) | payer MEDICARE, OTHER, SELFPAY ==
--- NOTE | 2023-05-07 17:10 | RAD_ITS ---
INDICATION: L sided EXAMINATION/TECHNIQUE: X-RAY - XR Facial Bones Min 3 Views COMPARISON: None. FINDINGS: SOFT TISSUES: No soft tissue swelling or gas. No radiopaque foreign body. BONES: No displaced fracture or subluxation. No sclerotic or destructive changes observed. Normal appearance the bony orbits. SINUSES: No acute abnormality. No air-fluid levels or sinus opacification. RAD/Facial Bones min 3 Views IMPRESSION: Negative facial bone series. Electronically Signed: Luke Otto MD at 0:42 EDT ,
--- OUTSIDE RECORDS SUMMARY | 2023-05-07 22:37 | XMS RPT_ITS | CCD ---
Author Name Unknown Address [address] [place] [address] Organization [facility] Care Team Providers Care Furnace Tender Name Role Phone EDGARD TUTTLE Attending Unavailable EDGARD TUTTLE Consulting Unavailable EDGARD TUTTLE Primary Care Unavailable EDGARD TUTTLE Admitting Unavailable PROVIDER, UNKNOWN Consulting Unavailable Allergies Allergy Classification Reported Allergen(s) Allergy Type Date of Onset Reaction(s) Facility (1 source) Penicillins Drug allergy (disorder) [facility] Repository Results Test Name Value Interpretation Reference Range Facil ity Encounters Encounter Date Encounter Type Care Provider Facility Start: 11-03-2022 End: 11-03-2022 ambulatory EDGARD Bennett [facility] Procedures Date Procedure Procedure Detail Performing Clinician Start: 11-03-2022 PSA screening EDGARD KIANNA H Payers Date Payer Category Payer Unknown [id number] Medicare [id number] Unknown [id number] Summary Purpose Family History No Family History [...] BE BASED ON THE PRIMARY CLINICAL RECORDS. [employer] provides no warranty or guarantee of the accuracy or completeness of information in this document.
== END | disposition home or self-care (01) ==
LOC: MTRAD 17:10
PROVIDERS: PCP Family Medicine; Referring Provider Family Medicine; Visit Provider Family Medicine
DX: J32.9 Chronic sinusitis, unspecified (principal)
CPT/HCPCS: 70150

== ENCOUNTER → 2023-05-08 | Outpatient (CLI) | payer MEDICARE, OTHER, SELFPAY ==
[2023-05-08 13:06] LABS: ALB/GLOB Ratio 1.1 RATIO (0.9-2.4); AST(SGOT) 17 U/L (15-37); Alanine Aminotransfer ALT/SGPT 22 U/L (16-61); Albumin, Serum 3.6 g/dL (3.2-5.0); Alkaline Phosphatase 61 U/L (45-117); Anion Gap 3 (5-15); BUN 18 mg/dL (7-18); CRP < 2.90 mg/L (0.0-3.0); Calcium,Total 8.9 mg/dL (8.5-10.1); Chloride 106 mmol/L (98-107); Creatinine, Serum 1.06 mg/dL (0.70-1.30); EST Glomerular Filtration Rate 73 mL/min (>60); Est Glom Filt Rate - Afr Amer 88 mL/min (>60); Globulin 3.2 g/dL (2.2-4.2); Glucose 96 mg/dL (74-106); Potassium 4.5 mmol/L (3.5-5.1); Protein, Total 6.8 g/dL (6.4-8.2); Sodium Level 139 mmol/L (136-145)
[2023-05-08 13:13] LABS: Erythrocyte Sedimentation Rate < 1 mm/hr (0-20)
[2023-05-08 13:15] LABS: Absolute Lymphocyte Count 2.34 X10^3/uL (0.83-4.51); Absolute Neutrophil Count 2.7 X10^3/uL (2.0-7.7); Basophil# 0.04 X10^3/uL; Basophil% 0.7 % (0-1); Eosinophil# 0.13 X10^3/uL; Eosinophils% 2.2 % (0-5); Hematocrit 42.3 % (40-54); Hemoglobin 13.5 g/dL (13.0-16.5); Lymphocyte # 2.34 X10^3/ul (0.83-4.51); Lymphocyte % 40.1 % (19-41); Mean Corp Hgb Conc 31.9 g/dL (32-36); Mean Corpuscular Hgb 28.7 pg (27.0-32.0); Mean Platelet Vol. 9.7 fl (6.2-12.0); Monocyte# 0.57 X10^3/uL; Monocyte% 9.8 % (0-10); NRBC Flagged by Analyzer 0 % (0-5); Neutrophil # 2.68 X10^3/uL (2.7-7.7); Neutrophil % 45.8 % (47-70); Platelet Count 249 K/mm3 (150-450); RBC Distribution Width CV 13.6 % (11.6-14.6); RBC Distribution Width SD 44.3 fl (35.1-43.9); White Blood Count 5.8 K/mm3 (4.4-11.0)
== END | disposition home or self-care (01) ==
LOC: MTLAB 10:25
PROVIDERS: PCP Family Medicine; Referring Provider Family Medicine; Visit Provider Family Medicine
DX: R51.9 Headache, unspecified (principal)
CPT/HCPCS: 36415; 80053; 85025; 85652; 86140

== ENCOUNTER → 2023-05-25 | Outpatient (CLI) | payer MEDICARE, OTHER, SELFPAY ==
[2023-05-25 18:46] LABS: Anion Gap 4 (5-15); BUN 16 mg/dL (7-18); BUN/Creat Ratio 17.6 RATIO (10-20); CRP < 2.90 mg/L (0.0-3.0); Calcium,Total 9.1 mg/dL (8.5-10.1); Chloride 106 mmol/L (98-107); Creatinine, Serum 0.91 mg/dL (0.70-1.30); EST Glomerular Filtration Rate 87 mL/min (>60); Est Glom Filt Rate - Afr Amer 106 mL/min (>60); Glucose 80 mg/dL (74-106); Potassium 4.1 mmol/L (3.5-5.1); Sodium Level 141 mmol/L (136-145)
[2023-05-26 19:50] LABS: Erythrocyte Sedimentation Rate < 1 mm/hr (0-20)
== END | disposition home or self-care (01) ==
LOC: MFPLAB 16:48
PROVIDERS: PCP Family Medicine; Visit Provider Family Medicine
DX: R51.9 Headache, unspecified (principal)
CPT/HCPCS: 36415; 80048; 85652; 86140

== ENCOUNTER → 2023-05-29 | Outpatient (CLI) | payer MEDICARE, OTHER, SELFPAY ==
[2023-06-02 13:08] LABS: Trileptal-Oxcarbazepine 11 ug/mL (10-35)
== END | disposition home or self-care (01) ==
LOC: MFPLAB 09:29
PROVIDERS: PCP Family Medicine; Visit Provider Family Medicine
DX: G50.0 Trigeminal neuralgia (principal)
CPT/HCPCS: 36415; 82542

== ENCOUNTER → 2023-06-15 | Outpatient (CLI) | payer MEDICARE, OTHER, SELFPAY ==
--- NOTE | 2023-06-15 13:20 | CT_ITS ---
STUDY: CT FACIAL BONES WITHOUT CONTRAST REASON FOR EXAM: Male, 72 years old. SINUSITIS RADIATION DOSAGE (If Supplied By Facility): CTDIvol = ( 28.14 ) mGy, DLP = ( 774.33 ) mGycm TECHNIQUE: The patient was scanned in a multi detector CT scanner. Sagittal and coronal images were reconstructed. Individualized dose optimization techniques were used for this CT. COMPARISON: None. FINDINGS: Normal soft tissue structures. Normal orbital mari and orbital contents. Normal nasal bones and anterior nasal spine. Normal facial bones. There is no demonstrated fracture. Mild degree of mucosal thickening involving the posterior inferior aspects of both maxillary sinuses. There is a 2.6 cm x 1.7 cm mucosal retention cyst or polyp in the left aspect of the sphenoid sinus. Mucosal thickening of the ethmoid sinuses bilaterally. 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 Nasal septal deviation towards the left side of the midline. CT/Sinus/Facial Bone IMPRESSION: 2.6 x 1.7 cm mucosal retention cyst or polyp in the left side of the sphenoid sinus. Mucosal thickening of the ethmoid sinuses as well as mucosal thickening of the posterior inferior aspect of both maxillary sinuses. Electronically Signed: Rodrigue Thornton MD at 15:17 EDT ,
== END | disposition home or self-care (01) ==
LOC: CT 13:18
PROVIDERS: PCP Family Medicine; Referring Provider Otolaryngology Otolaryngology/Facial Plastic Surgery; Visit Provider Otolaryngology Otolaryngology/Facial Plastic Surgery
DX: J32.8 Other chronic sinusitis (principal)
CPT/HCPCS: 70486

== ENCOUNTER → 2023-07-28 | Outpatient (CLI) | payer MEDICARE, OTHER, SELFPAY ==
--- NOTE | 2023-07-28 13:00 | PROSBIL_PTH ---
PATIENT: CORINNE SIMPSON LOC: [facility] U#:[id number] AGE/SX: 72/M ROOM: RE07/28/[address]: Dr. Girish Romero MD : 1950 BED: DIS: 07/28/2023 SPEC #: [id number] RECD: 07/29/23 10:52 STATUS: CHITO REKashif #: [id number] KEN: 07/28/23 13:[address]: Girish Romero DEPT: SURGICAL PATHOLOGY RECD BY: Shaylee Judge ENTERED: 07/29/23 10:52 SP TYPE: PROST BX AMY DR: Dr. Melquiades Burgess MD Tissues: A - PROSTATE RIGHT B - PROSTATE RIGHT C - PROSTATE RIGHT D - PROSTATE LEFT E - PROSTATE LEFT F - PROSTATE LEFT Procedures: PROSTATE BX HEADER OPERATION: Prostate biopsy PRE-OP DIAGNOSIS: Elevated PSA TISSUE SUBMITTED: A - Right apex, B - Right mid, C - Right base, D - Left apex, E - Left mid, F - Left base MICROSCOPIC DIAGNOSIS A. Right prostate, apex, core biopsy: Prostatic tissue, negative for malignancy. B. Right prostate, mid, core biopsy: Prostatic tissue, negative for malignancy. C. Right prostate, base, core biopsy: Prostatic tissue, negative for malignancy. Focal mild chronic inflammation. D. Left prostate, apex, core biopsy: Prostatic tissue, negative for malignancy. Focal calcifications and basal cell hyperplasia. E. Left prostate, mid, core biopsy: Prostatic tissue, negative for malignancy. Focal mild chronic inflammation and minimal acute inflammation. F. Left prostate, base, core biopsy: Prostatic tissue, negative for malignancy. ISAMAR/ 07/30/2023 MICROSCOPIC DESCRIPTION Slides are reviewed. GROSS DESCRIPTION A - Received is one container designated prostate, right apex. The specimen consists of two elongated fragments of light conde-white soft tissue each measuring 0.6 cm in length and 0.1 cm in diameter. The specimen is totally submitted in one cassette. B - Received is one container designated prostate, right mid. The specimen consists of two elongated fragments of light conde-white soft tissue each measuring 0.7 cm in length and 0.1 cm in diameter. The specimen is totally submitted in one cassette. C - Received is one container designated prostate, right base. The specimen consists of one elongated fragments of light conde-white soft tissue measuring 1.1 cm in length and 0.1 cm in diameter. The specimen is totally submitted in one cassette. D - Received is one container designated prostate, left apex. The specimen consists of one elongated fragments of light conde-white soft tissue measuring 0.7 cm in length and 0.1 cm in diameter. The specimen is totally submitted in one cassette. E - Received is one container designated prostate, left mid. The specimen consists of two elongated fragments of light conde-white soft tissue measuring 0.2 and 1.2 cm in length and 0.1 cm in diameter. The specimen is totally submitted in one cassette. F - Received is one container designated prostate, left base. The specimen consists of one elongated fragments of light conde-white soft tissue measuring 1.0 cm in length and 0.1 cm in diameter. The specimen is totally submitted in one cassette. / ISAMAR/ 07/29/23 TC:3 CPT: G0146
== END | disposition home or self-care (01) ==
PROVIDERS: PCP Family Medicine; Referring Provider Urology; Visit Provider Urology
DX: R97.20 Elevated prostate specific antigen [PSA] (principal)
CPT/HCPCS: 88305; G0416

== ENCOUNTER → 2024-09-15 | Outpatient (CLI) | payer MEDICARE, OTHER, SELFPAY ==
--- NOTE | 2024-09-15 11:30 | MRI_ITS ---
PROCEDURE: PELVIS W/WO CONTRAST, 09/15/2024 REASON FOR EXAM: ELEVATED PSA. Per technologist report, PSA is 7.64 on unspecified date. TECHNIQUE: Multisequence multiplanar MRI pelvis was performed with and without IV contrast. IV Contrast: 17 mL Clariscan COMPARISON: None FINDINGS: T1 bright presumed post biopsy blood products in the RIGHT posterior peripheral zone. Prostate size: 4.6 x 3.4 x 3.9 cm, estimated volume 31.7 mL. Per the above provided PSA, PSA density is 0.241 ng/mL. Transition zone: PI-RADS 2 findings. Additional lesions as below: *Lesion 1: Far basal RIGHT anterior transition zone, 1.3 cm (series 12 image 12). This probably involves the overlying RIGHT anterior peripheral zone and possibly anterior fibromuscular stroma. *T2 score: 4. *DWI score: 4. *DCE: Positive. *Overall PI-RADS: 4. *Extracapsular extension:Capsular abutment greater than 1 cm with subtle overlying capsular bulging into the bladder neck, a finding which can be seen in early extracapsular extension. Peripheral Zone: Background changes of likely prostatitis (PI-RADS 2). Additional lesions as below: *Lesion 2: Ill-defined signal in the LEFT mid posterolateral peripheral zone, 0.8 cm (series 12, image 15-17).. *T2 score: 3. *DWI score: 3. *DCE: Positive. *Overall PI-RADS: Borderline; felt the best considered PI-RADS 3. *Extracapsular extension:Capsular abutment without gross extracapsular extension. Neurovascular bundles: Unremarkable. Seminal vesicles: Unremarkable. Bladder: Underdistended and suboptimally evaluated. Appearance suggestive of chronic bladder outlet obstruction. Lymph nodes: Unremarkable. Bones: No destructive or frankly suspicious bony lesions identified on nondedicated evaluation. 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 Bilateral inguinal hernia repair with mesh. MRI/Pelvis W/WO Contrast IMPRESSION: 1. 1.3 cm PI-RADS 4 lesion in the far basal RIGHT anterior transition zone prob ably involving the overlying RIGHT anterior peripheral zone and possibly the anterior fibromuscular stroma (lesion 1) 2. 0.8 cm ill-defined borderline PI-RADS 3 lesion in the LEFT mid posterolatera l peripheral zone may reflect focally prominent sequela of prostatitis (lesion 2). 3. Capsular abutment by both lesions and greater than 1 cm by lesion 1 with sub tle overlying capsular bulging into the bladder neck, a finding which can be seen in early extracapsular extension. 4. No overt pelvic lymphadenopathy. 5. 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 6. Additional description as above. Reading Location: [id number]
== END | disposition home or self-care (01) ==
LOC: OPMRI 10:56
PROVIDERS: PCP Family Medicine; Referring Provider Urology; Visit Provider Urology
DX: R97.20 Elevated prostate specific antigen [PSA] (principal)
CPT/HCPCS: 72197; A9575; A4216

== ENCOUNTER → 2024-10-04 | Outpatient (CLI) | payer MEDICARE, OTHER, SELFPAY ==
--- NOTE | 2024-10-04 13:00 | PROSB_PTH ---
PATIENT: CORINNE SIMPSON LOC: [facility] U#:[id number] AGE/SX: 73/M ROOM: RE10/04/[address]: Dr. Girish Romero MD : 1950 BED: DIS: 10/04/2024 SPEC #: [id number] RECD: 10/04/24 16:46 STATUS: CHITO REQ #: [id number] KEN: 10/04/24 13:[address]: Girish Romero DEPT: SURGICAL PATHOLOGY RECD BY: Daryl Gutiérrez ENTERED: 10/05/24 10:34 SP TYPE: PROST BX OTHR DR: Dr. Melquiades Burgess MD Tissues: A - Prostate, NOS Procedures: Surgery Specimen Level IV HEADER OPERATION: Prostate biopsy PRE-OP DIAGNOSIS: Elevated PSA TISSUE SUBMITTED: A- Right mid MICROSCOPIC DIAGNOSIS A. 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 MICROSCOPIC DESCRIPTION Slides are reviewed. GROSS DESCRIPTION A. Received in formalin labeled with the patient's name and date of . Designated as RM are 5 conde tissue cores, 0.8 cm - 2.4 cm in length by 0.1 cm in diameter. Entirely submitted in 2 cassettes as follows: A1: 2 tissue coresA2: 3 tissue cores ME 10/05/2024 CPT:72676
== END | disposition home or self-care (01) ==
PROVIDERS: PCP Family Medicine; Referring Provider Urology; Visit Provider Urology
DX: C61 Malignant neoplasm of prostate (principal)
CPT/HCPCS: 88305